=== PATIENT | female | born 1980 | race African-American/Black ===

== ENCOUNTER 2017-12-31 17:39 | Emergency (ER) | payer OTHER ==
[~2017-12-31] VITALS: Ht 162.6 cm; Wt 102.1 kg
[2017-12-31] MEDS ORDERED: Ketorolac 60mg Inj IM ONE (18:00)
--- NOTE | 2017-12-31 18:17 | Emergency Room Report ---
History of Present Illness General Chief Complaint: Lower Extremity Injury Source: Patient Present Illness HPI 37 YO female presents to the ED c/o left posterior knee pain in addition to intermittent electrical shooting pain down bilateral legs. pt. report hx of scoliosis. denies trauma or fall. pt. reports onset of left knee pain was after she attempted to "crack" her knee by extending it. she had acute onset of pain to the posterior knee. Denies numbness tingling or loss of sensation or gross motor movements of the extremities, incontinence of bowel or bladder. Denies CP , Palpitations, LOC, AMS, dizziness, Changes in Vision, weakness or a sudden severe headache. Allergies: Coded Allergies: No Known Allergies (Unverified , 12/31/17) Patient History Past Medical History: see triage record Past Surgical History: none Pertinent Family History: none Last Menstrual Period: dec 04 Now: No Reviewed Nursing Documentation: PMH: Agreed; PSxH: Agreed Nursing Documentation-PMH Past Medical History: No History, Except For Review of Systems All Other Systems: negative except mentioned in HPI Physical Exam Vital Signs Date Time Temp Pulse Resp B/P (MAP) Pulse Ox O2 Delivery O2 Flow Rate FiO2 12/31/17 17:41 98.5 87 18 121/83 97 Room Air 98.4 Sp02 EP Interpretation: reviewed, normal General Appearance: no apparent distress, alert, GCS 15, non-toxic, obese Head: normocephalic, atraumatic ENT: hearing grossly normal, normal voice Neck: full range of motion Respiratory: lungs clear, normal breath sounds, speaking full sentences Cardiovascular #1: regular rate, rhythm Musculoskeletal: back normal, gait/station normal, normal range of motion, tender - TTP to the lateral and posterior left knee. and bilateral lumbar paraspinal ttp, FROM. no pulsatile mass in the posterior knee, no increased laxity, no obvious deformity, FROM. Neurologic: alert, oriented x3, responsive, motor strength/tone normal, sensory intact, speech normal, grossly normal Psychiatric: judgement/insight normal Skin: normal color, no rash, warm/dry, well hydrated Medical Decision Making PA Attestation Dr. hernandez is my supervising Physician whom patient management has been discussed with. Diagnostic Impression: Primary Impression: Strain of left knee Qualified Codes: S86.912A - Strain of unspecified muscle(s) and tendon(s) at lower leg level, left leg, initial encounter Additional Impression: Bilateral sciatica ER Course 37 YO female presents to the ED c/o left posterior knee pain in addition to intermittent electrical shooting pain down bilateral legs. pt. report hx of scoliosis. denies trauma or fall. pt. reports onset of left knee pain was after she attempted to "crack" her knee by extending it. she had acute onset of pain to the posterior knee. Pt. reports urinary frequency. denies dysuria or hematuria. Denies numbness tingling or loss of sensation or gross motor movements of the extremities, incontinence of bowel or bladder. Denies CP, Palpitations, LOC, AMS, dizziness, Changes in Vision, weakness or a sudden severe headache. Ddx considered but are not limited to Fracture, dislocation, contusion, Sprain/ Strain/Spasm, Epidural abscess, Neoplastic mets. Vital signs: are WNL, pt. is afebrile H&PE are most consistent with musculoskeletal injury will perform imaging to r/ o fractures/dislocations. ORDERS: -UA : WNL/Unremarkable ED INTERVENTIONS: - Toradol IM Jeff wrap applied by time study technologist. Pt. remains neurovascularly intact. patient was provided with cane. DISCHARGE: At this time pt. is stable for d/c to home. Will provide printed patient care instructions, and any necessary prescriptions. Care plan and follow up instructions have been discussed with the patient prior to discharge. Labs Test 12/31/17 18:09 Urine Color Yellow Urine Appearance Clear Urine pH 6 (4.5-8.0) Urine Specific [place] 1.020 (1.005-1.035) Urine Protein 2+ (NEGATIVE) Urine Glucose (UA) Negative (NEGATIVE) Urine Ketones 1+ (NEGATIVE) Urine Occult Blood Negative (NEGATIVE) Urine Nitrite Negative (NEGATIVE) Urine Bilirubin Negative (NEGATIVE) Urine Urobilinogen 1 MG/DL (0.0-1.0) Urine Leukocyte Esterase 1+ (NEGATIVE) Urine RBC 0-2 /HPF (0 - 2) Urine WBC 2-4 /HPF (0 - 2) Urine Squamous Epithelial Cells Few /LPF (NONE/OCC) Urine Bacteria Few /HPF (NONE) Urine HCG, Qualitative Negative (NEGATIVE) Last Vital Signs Date Time Temp Pulse Resp B/P (MAP) Pulse Ox O2 Delivery O2 Flow Rate FiO2 12/31/17 17:41 98.5 87 18 121/83 97 Room Air 98.4 Disposition: HOME, SELF-CARE Condition: Stable Scripts Lidocaine (Lidoderm) 1 Each Adh..patch 1 PATCH TOPIC DAILY, #30 PATCH 0 Refills Patch(es) may remain in place for up to 12 hours in any 24-hour period. Prov: Kiara Kimball 12/31/17 Acetaminophen* (TYLENOL EXTRA STRENGTH*) 500 Mg Tablet 500 MG ORAL Q6H, #20 TAB 0 Refills Prov: Kiara Kimball 12/31/17 Methocarbamol* (ROBAXIN*) 500 Mg Tablet 1000 MG PO TID, #42 TAB 0 Refills Prov: Kiara Kimball 12/31/17 Patient Instructions: Muscle Strain, Poak-[id number], Sciatica, [id number] Additional Instructions: Take medications as directed. Follow up with a Primary Care Provider in 3-5 days, even if your symptoms have resolved. --Please review list of primary care clinics, if you do not already have a primary care provider Return sooner to ED if new symptoms occur, or current symptoms become worse. Do not drink alcohol, drive, or operate heavy machinery while taking [ ] as this may cause drowsiness. - Please note that this Emergency Department Report was dictated using [employer] loading machine feeder technology software, occasionally this can lead to erroneous entry secondary to interpretation by the dictation equipment. Kiara Kimball Dec 31, 2017 18:17
[2017-12-31 18:24] LABS: APPEARANCE,URINE CLEAR; BILIRUBIN, URINE NEGATIVE (NEGATIVE); GLUCOSE, URINE (UA) NEGATIVE (NEGATIVE); KETONES,URINE 1+ (NEGATIVE); LEUKOCYTE ESTERASE ,URINE 1+ (NEGATIVE); NITRITE,URINE NEGATIVE (NEGATIVE); PH,URINE 6 (4.5-8.0); PROTEIN,URINE 2+ (NEGATIVE); UROBILINOGEN,URINE 1 MG/DL (0.0-1.0)
[2017-12-31 18:32] LABS: COLOR,URINE YELLOW
[2017-12-31] MEDS ORDERED: ROBAXIN500 MG PO (19:39)
[2017-12-31] MEDS ORDERED: TYLENOL EXTRA500 MG ORAL (19:39)
[2017-12-31] MEDS ORDERED: LIDODERM700 M1 TOPIC (19:39)
[2017-12-31 19:58] VITALS: BP 121/83
[2017-12-31 20:00] VITALS: BP 116/77
== END 2017-12-31 20:06 | disposition home or self-care (01) ==
LOC: EMR 18:00
DX: S83.92XA Sprain of unspecified site of left knee, initial encounter (principal); X50.9XXA Other and unspecified overexertion or strenuous movements or postures, initial encounter; Y93.9 Activity, unspecified; Y92.9 Unspecified place or not applicable; M54.32 Sciatica, left side; M54.31 Sciatica, right side
CPT/HCPCS: 81003; 81025; 96372; 99283

== ENCOUNTER 2019-07-10 09:35 | Emergency (ER) | payer OTHER ==
[~2019-07-10] VITALS: Ht 162.6 cm; Wt 117.0 kg
[~2019-07-10 09:35] MED LIST: LIDODERM700 M1 TOPIC; ROBAXIN500 MG PO; TYLENOL EXTRA500 MG ORAL
[2019-07-10 09:40] VITALS: BP 111/74
[2019-07-10] MEDS ORDERED: LATUDA80 MG PO (09:41)
--- NOTE | 2019-07-10 10:56 | Emergency Room Report ---
History of Present Illness General Chief Complaint: Sore Throat Source: Patient Present Illness HPI This patient states that for the past 4 days she has had a sore throat. She states she is also been fatigued. She states she gets recurrent strep pharyngitis since she was a child. She has had an occasional cough but primarily complains of a sore throat. She denies shortness of breath. She denies abdominal pain. She denies headache or neck pain. She denies blurry vision. She denies tingling or numbness. She has no other complaints. Allergies: Coded Allergies: No Known Allergies (Unverified , 12/31/17) Patient History Past Medical History: see triage record, other - scoliosis Past Surgical History: other - Ahmadi Tae Social History: Reports: drug use - THC; Denies: smoking, alcohol use Last Menstrual Period: 07/03/19 Now: No Reviewed Nursing Documentation: PMH: Agreed; PSxH: Agreed Nursing Documentation-PMH Past Medical History: No History, Except For Review of Systems All Other Systems: negative except mentioned in HPI Physical Exam Vital Signs Date Time Temp Pulse Resp B/P (MAP) Pulse Ox O2 Delivery O2 Flow Rate FiO2 07/10/19 09:37 98.2 101 19 111/74 (86) 95 Room Air Sp02 EP Interpretation: reviewed, normal General Appearance: no apparent distress, alert, GCS 15, non-toxic Head: normocephalic, atraumatic Eyes: bilateral eye normal inspection, bilateral eye PERRL ENT: hearing grossly normal, no angioedema, normal voice, uvula midline, moist mucus membranes, tonsillar swelling, tonsillar exudate, other - R. TM erythematous and bulging. Neck: normal inspection, full range of motion, supple/symm/no masses Respiratory: chest non-tender, lungs clear, normal breath sounds, no respiratory distress, no retraction, no accessory muscle use, speaking full sentences Cardiovascular #1: regular rate, rhythm, no edema Rectal: deferred Musculoskeletal: back normal, normal range of motion, gait/station normal, non- tender Neurologic: alert, motor strength/tone normal, oriented x3, sensory intact, responsive, speech normal Psychiatric: judgement/insight normal, memory normal, mood/affect normal, no suicidal/homicidal ideation Skin: no rash, normal color Medical Decision Making Diagnostic Impression: Primary Impression: Strep pharyngitis Additional Impression: Otitis media ER Course This patient has a clinical presentation consistent with strep pharyngitis. There is no evidence of peritonsillar abscess or deep neck abscess. There is no airway edema. Overall, this patient had a very benign examination. The patient is instructed to get rxbt-[id number]-jaxwwbw lozenges. I will also give the patient Motrin as a pain medication and anti-inflammatory. The patient was given return precautions and followup instructions. Last Vital Signs Date Time Temp Pulse Resp B/P (MAP) Pulse Ox O2 Delivery O2 Flow Rate FiO2 07/10/19 09:40 98.2 86 19 111/74 95 Room Air Status: improved Disposition: HOME, SELF-CARE Condition: Improved Referrals: [facility],REFERRING (PCP) Patient Instructions: Strep Throat Shaneka Canas DO Jul 10, 2019 10:56
[2019-07-10] MEDS ORDERED: AUGMENTIN 875-1 EAC1 ORAL (11:03)
[2019-07-10] MEDS ORDERED: IBUPROFEN600 MG ORAL (11:03)
[2019-07-10 11:20] VITALS: BP 122/76
== END 2019-07-10 11:20 | disposition home or self-care (01) ==
LOC: EMR 09:58
DX: J02.0 Streptococcal pharyngitis (principal); H66.91 Otitis media, unspecified, right ear; M41.9 Scoliosis, unspecified
CPT/HCPCS: 86710; Z7502; 99282

== ENCOUNTER 2019-08-06 12:11 | Emergency (ER) | payer OTHER ==
[~2019-08-06] VITALS: Ht 162.6 cm; Wt 120.2 kg
[~2019-08-06 12:11] MED LIST changes: +AUGMENTIN 875-1 EAC1 ORAL; +IBUPROFEN600 MG ORAL; +LATUDA80 MG PO
--- NOTE | 2019-08-06 12:36 | NUR ---
ED Nurse Note: Patient walked in from home due to sore throat and swellon tonsills x1 week. Patient alert and oriented x4 and ambulatory. skin clean and intact. calm but gramicing for sore throat. calm and cooperative. no cardiac or pulmonry distress noted at this time. ERPA at chair side.
[2019-08-06 12:37] VITALS: BP 120/68
[2019-08-06] MEDS ORDERED: Lidocaine 1% MPF 10mg/ml 5ml INJ ONE (12:45)
[2019-08-06] MEDS ORDERED: Dexamethasone 4mg/ml vial IM ONE (12:45)
--- NOTE | 2019-08-06 12:48 | Emergency Room Report ---
History of Present Illness General Chief Complaint: Sore Throat Source: Patient Present Illness HPI 39-year-old female with no significant past medical history here complaining of 1 day of 10 out of 10 sore throat, tonsillar swelling, and fever. Denies any recent travel or coming in contact with people who have travel. Denies chest pain, shortness of breath, palpitation, lower respiratory symptoms. Denies cough and congestion at this time. Patient was seen at [facility] beginning of July 2019 for similar symptoms. Has not taken medication for symptom relief. Denies abdominal pain, nausea vomiting, no other associated symptoms. Patient denies at this time. Allergies: Coded Allergies: No Known Allergies (Unverified , 12/31/17) Patient History Past Medical History: see triage record Past Surgical History: none Pertinent Family History: none Now: No Immunizations: UTD Reviewed Nursing Documentation: PMH: Agreed; PSxH: Agreed Nursing Documentation-PMH Past Medical History: No History, Except For Review of Systems All Other Systems: negative except mentioned in HPI Physical Exam Vital Signs Date Time Temp Pulse Resp B/P (MAP) Pulse Ox O2 Delivery O2 Flow Rate FiO2 08/06/19 12:19 101.8 111 18 120/68 (85) 99 Room Air Sp02 EP Interpretation: reviewed, normal, abnormal - Temp of 101 F General Appearance: no apparent distress, alert, GCS 15, non-toxic Head: normocephalic, atraumatic Eyes: bilateral eye normal inspection, bilateral eye PERRL ENT: uvula midline, tonsillar swelling, tonsillar exudate Neck: supple, no meningismus, other - Anterior cervical lymphadenopathy Respiratory: chest non-tender, lungs clear, normal breath sounds, no rhonchi, no retraction, no wheezing, speaking full sentences Cardiovascular #1: regular rate, rhythm, no edema, no murmur, normal capillary refill Gastrointestinal: soft, no bruit, no hernia Genitourinary: no CVA tenderness Musculoskeletal: back normal, digits/nails normal, no calf tenderness Neurologic: alert, motor strength/tone normal, oriented x3, sensory intact, responsive, speech normal Psychiatric: judgement/insight normal, memory normal, mood/affect normal, no suicidal/homicidal ideation Skin: no rash Lymphatic: adenopathy - Anterior cervical lymphadenopathy Medical Decision Making PA Attestation All my diagnosis and treatment plans were reviewed ad discussed with my supervising physician Dr. Villavicencio Diagnostic Impression: Primary Impression: Tonsillitis with exudate ER Course 39-year-old female with no significant past medical history here complaining of 1 day of 10 out of 10 sore throat, tonsillar swelling, and fever. Denies any recent travel or coming in contact with people who have travel. Denies chest pain, shortness of breath, palpitation, lower respiratory symptoms. Denies cough and congestion at this time. Patient was seen at [facility] beginning of July 2019 for similar symptoms. Has not taken medication for symptom relief. Denies abdominal pain, nausea vomiting, no other associated symptoms. Patient denies at this time. Ddx considered but are not limited to: strep pharyngitis, URI, tonsillitis, peritonsillar abscess, influenza Vital signs: are WNL, pt. is febrile H&PE are most consistent with: Tonsillitis with exudate ORDERS: Augmentin, prednisone, Motrin ED INTERVENTIONS: Dexamethasone IM, Rocephin IM, Motrin p.o. DISCHARGE: At this time pt. is stable for d/c to home. Will provide printed patient care instructions, and any necessary prescriptions. Care plan and follow up instructions have been discussed with the patient prior to discharge. Take medication as directed, follow-up with your primary care provider, increase oral hydration, use to be sent to ear nose throat doctor for recurrent tonsillitis. If worsening symptoms return to emergency room Last Vital Signs Date Time Temp Pulse Resp B/P (MAP) Pulse Ox O2 Delivery O2 Flow Rate FiO2 08/06/19 12:37 101.8 91 18 120/68 99 Room Air Disposition: HOME, SELF-CARE Condition: Stable Scripts Ibuprofen* (MOTRIN*) 600 Mg Tablet 600 MG ORAL Q8H PRN for For Pain, #30 TAB 0 Refills Prov: Becki Morin 08/06/19 Prednisone* (PREDNISONE*) 20 Mg Tablet 40 MG ORAL DAILY for 5 Days, #10 TAB Prov: Becki Morin 08/06/19 Amoxicillin/Potassium Clav 875-125* (AUGMENTIN 875-125 TABLET*) 1 Each Tablet 1 TAB ORAL TWICE A DAY for 10 Days, #20 TAB Prov: Becki Morin 3/4/20 Patient Instructions: Tonsillitis Additional Instructions: Take medication as directed, follow-up with your primary care provider, increase oral hydration, you need to be sent to ear nose throat doctor for recurrent tonsillitis. If worsening symptoms return to emergency room Becki Morin Aug 06, 2019 12:48
[2019-08-06] MEDS ORDERED: PREDNISONE20 MG ORAL (12:49)
[2019-08-06] MEDS ORDERED: AUGMENTIN 875-1 EAC1 ORAL (12:49)
[2019-08-06] MEDS ORDERED: IBUPROFEN600 MG ORAL (12:49)
--- NOTE | 2019-08-06 12:59 | NUR ---
ER DISCHARGE NOTE: Patient is cleared to be discharged per SARANYA YOUNG, pt is aox4, on room air, with stable vital signs. pt was given dc and prescription instructions, pt was able to verbalize understanding, pt id band removed without complications. pt is able to ambulate with steady gait. pt took all belongings.
[2019-08-06 13:00] VITALS: BP 120/68
== END 2019-08-06 13:00 | disposition home or self-care (01) ==
LOC: EMR 12:53
DX: J03.90 Acute tonsillitis, unspecified (principal)
CPT/HCPCS: 96372; 96374; J0696; J1100; Z7502; 99284

== ENCOUNTER 2020-02-17 10:08 | Emergency (ER) | payer OTHER ==
[~2020-02-17] VITALS: Ht 162.6 cm; Wt 113.4 kg
[~2020-02-17 10:08] MED LIST changes: +PREDNISONE20 MG ORAL
--- NOTE | 2020-02-17 10:36 | NUR ---
ED Nurse Note: Pt has sore throat, nausea, diarrhea, and bodyaches 5/10 for 3 days. Pt states she has not been tested previously for COVID. Pt is alert and orientedx4, ambulatory. Pt has been seen by ERMCharles. Pt thinks she has strep throat.
--- NOTE | 2020-02-17 10:37 | NUR ---
ED Nurse Note: COVID swab sent.
[2020-02-17 10:38] VITALS: BP 124/70
[2020-02-17 11:16] LABS: APPEARANCE,URINE SLIGHTLY CLOUDY; BILIRUBIN, URINE NEGATIVE (NEGATIVE); GLUCOSE, URINE (UA) NEGATIVE (NEGATIVE); KETONES,URINE NEGATIVE (NEGATIVE); LEUKOCYTE ESTERASE ,URINE 1+ (NEGATIVE); NITRITE,URINE NEGATIVE (NEGATIVE); PH,URINE 6 (4.5-8.0); PROTEIN,URINE 1+ (NEGATIVE); UROBILINOGEN,URINE NORMAL MG/DL (0.0-1.0)
--- NOTE | 2020-02-17 11:21 | Emergency Room Report ---
History of Present Illness General Chief Complaint: Sore Throat Source: Patient Present Illness HPI Patient complains of sore throat, body aches, nausea and diarrhea for the past 5 days. She denies fever or chills. She denies cough or congestion. She denies shortness of breath. She denies abdominal pain. She denies dysuria hematuria. She has no other complaints. Allergies: Coded Allergies: No Known Allergies (Unverified , 12/31/17) COVID-19 Screening Contact w/high risk pt: No Experienced COVID-19 symptoms?: No COVID-19 Testing performed EXECUTIVE DIRECTOR OF NURSING: No Patient History Past Medical History: see triage record, other - Scoliosis Past Surgical History: other - Ahmadi Tae Social History: Denies: smoking, alcohol use, drug use Last Menstrual Period: 01/17/2020 Reviewed Nursing Documentation: PMH: Agreed; PSxH: Agreed Nursing Documentation-PMH Past Medical History: No History, Except For Review of Systems All Other Systems: negative except mentioned in HPI Physical Exam Vital Signs Date Time Temp Pulse Resp B/P (MAP) Pulse Ox O2 Delivery O2 Flow Rate FiO2 02/17/20 10:10 97.2 88 19 129/71 (90) 100 Room Air Sp02 EP Interpretation: reviewed, normal General Appearance: no apparent distress, alert, GCS 15, non-toxic Head: normocephalic, atraumatic Eyes: bilateral eye normal inspection, bilateral eye PERRL ENT: hearing grossly normal, no angioedema, normal voice, TMs + canals normal, uvula midline, moist mucus membranes, pharyngeal erythema Neck: full range of motion, supple/symm/no masses Respiratory: chest non-tender, lungs clear, normal breath sounds, no respiratory distress, no retraction, no accessory muscle use, speaking full sentences Cardiovascular #1: regular rate, rhythm, no edema Rectal: deferred Musculoskeletal: back normal, normal range of motion, gait/station normal, non- tender Neurologic: alert, motor strength/tone normal, oriented x3, sensory intact, responsive, speech normal Psychiatric: judgement/insight normal, memory normal, mood/affect normal, no suicidal/homicidal ideation Skin: no rash, normal color Medical Decision Making Diagnostic Impression: Primary Impression: Pharyngitis ER Course This patient has a clinical presentation consistent with pharyngitis. Physical exam is consistent with a viral etiology. There is no evidence of peritonsillar abscess or deep neck abscess. There is no airway edema. Overall , this patient had a very benign examination. The patient only needs supportive care. The patient is instructed to get atqe-sjf-zjzjvvd lozenges. I will also give the patient Motrin as a pain medication and anti-inflammatory. The patient was given return precautions and followup instructions. Rapid COVID-19 test is negative, although, the patient was educated that this could be a false negative. It was recommended that she quarantine for 10 days after her symptoms resolve as a precaution. She indicated understanding. The patient is given return precautions and follow-up instructions. Laboratory Tests Test 02/17/20 11:00 Urine Color Pending Urine Appearance Pending Urine pH Pending Urine Specific [place] Pending Urine Protein Pending Urine Glucose (UA) Pending Urine Ketones Pending Urine Blood Pending Urine Nitrite Pending Urine Bilirubin Pending Urine Urobilinogen Pending Urine Leukocyte Esterase Pending Urine RBC Pending Urine WBC Pending Urine Squamous Epithelial Cells Pending Urine Bacteria Pending Urine HCG, Qualitative Negative (NEGATIVE) Microbiology Date/Time Source Procedure Growth Status 02/17/20 10:25 Nasopharynx SARS-CoV-2 RdRp Gene Assay - Final Complete COVID-19 ID NOW RAPID Final SARS-CoV-2, MATILDE NEGATIVE Last Vital Signs Date Time Temp Pulse Resp B/P (MAP) Pulse Ox O2 Delivery O2 Flow Rate FiO2 02/17/20 10:38 97.2 87 17 124/70 98 Room Air Status: improved Disposition: HOME, SELF-CARE Condition: Improved Referrals: [facility],REFERRING (PCP) Sahneka Canas DO Feb 17, 2020 11:21
[2020-02-17 11:23] LABS: COLOR,URINE YELLOW
[2020-02-17] MEDS ORDERED: CEPACOL SORE T1 EAC5 MM (11:23)
[2020-02-17] MEDS ORDERED: IBUPROFEN600 M1 ORAL (11:23)
[2020-02-17] MEDS ORDERED: ACETAMINOPHEN500 M3 ORAL (11:23)
--- NOTE | 2020-02-17 11:36 | NUR ---
ER DISCHARGE NOTE: Patient is cleared to be discharged per ERMD, pt is aox4, on room air, with stable vital signs. pt was given dc and prescription instructions, pt was able to verbalize understanding, pt id band removed. pt is able to ambulate with steady gait. pt took all belongings.
[2020-02-17 11:38] VITALS: BP 120/73
== END 2020-02-17 11:39 | disposition home or self-care (01) ==
LOC: EMR 10:30
DX: J02.9 Acute pharyngitis, unspecified (principal); M41.9 Scoliosis, unspecified
CPT/HCPCS: 81001; 81025; U0002; Z7502; 99282